=== PATIENT | male | born 2000 | race Caucasian/White ===

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

== ENCOUNTER → 2022-04-04 | Outpatient (CLI) | payer MEDICAID, SELFPAY ==
--- NOTE | 2022-04-04 08:13 | MRI_ITS ---
HISTORY: LBP, left leg pain, radiculopathy. TECHNIQUE: Multiplanar and multisequence MR images of the lumbar spine were obtained without intravenous contrast. 126 images. COMPARISON: XR 12/02/2021. FINDINGS: VERTEBRAE: Schmorl''s nodes at the inferior endplates of T11 and T12 with minimal chronic anterior wedging of T12. Lumbar vertebral body heights maintained. Mild degenerative bone marrow endplate changes at L5-S1. ALIGNMENT: No anterior or posterior subluxation. CONUS: Normal morphology and position of the conus medullaris at L1-2. INTERVERTEBRAL DISCS: T12-L1: No significant posterior disc protrusion, central canal stenosis, or foraminal narrowing based on the sagittal images. L1-2, L2-3, L3-4, L4-5: No significant posterior disc protrusion, central canal stenosis, or foraminal narrowing. L5-S1: Central disc protrusion with annular fissure. No significant central canal stenosis or foraminal narrowing. SOFT TISSUES: No paraspinal fluid collection. MRI/Spine Lumbar (Routine) IMPRESSION: Central disc protrusion of L5-S1 without significant spinal canal stenosis or foraminal narrowing. Electronically Signed: Ysabel Rico MD at 12:35 EST ,
== END | disposition home or self-care (01) ==
LOC: MRI 07:56
PROVIDERS: PCP Nurse Practitioner Family; Referring Provider Chiropractor; Visit Provider Chiropractor
DX: M79.605 Pain in left leg (principal)
CPT/HCPCS: 72148